=== PATIENT | male | born 1990 | race Caucasian/White ===

== ENCOUNTER 2025-10-09 16:19 | Emergency (ER) | payer MEDICAID, SELFPAY ==
--- OUTSIDE RECORDS SUMMARY | 2024-05-02 08:00 | XMS_ITS ---
Author Organization [facility] Address [address] [place] [id number] Care Team Providers Care Car Audio Installer Name Role Phone DEBBI HALE Primary Care Provider Unavailab Edilson Mac Unavailable [phone] REASON FOR VISIT pt already seen earlier appt Social History Sex Assigned At : Social History Observation Description Sex Assigned At Male Encounters Encounter Location Date Provider Diagnosis - Endocrinology [address] [place] [address] 05/02/2024 Edilson Freitas Plan Of Treatment No Information Progress Notes * MIKAELA MCADAMSEDOB:1990 (35 yo M)Acc No.[id number]:05/02/2024 UNLOCKED PROGRESS NOTE Progress Note Patient: TOSHIA CALLAHAN Provider: Anastasiya Freitas MD :1990 A ge:34 Y S ex:Male Date:05/02/2024 Address:[address] [place] [id number] Pcp:DEBBI HALE Subjective: * Chief Complaints: * 1 . Pt already seen earlier appt. * Medical History: * Implants: Objective: * Vitals: Assessment: Plan: * Treatment: * Billing Information: * Visit Code: * Procedure Codes: * Electronic signature of Mariia Freitas MD on 10/09/2025 at 08:21 PM EST Sign off status: Pending * Provider: Anastasiya Freitas MD Date: 0 05/02/2024 Generated for Lacey gutierrez/Olayinka/Sandee on: 1 12/10/2024 08:21 PM EST
--- OUTSIDE RECORDS SUMMARY | 2024-05-04 08:40 | XMS_ITS ---
Author Organization [facility] Address [address] [place] [phone] Care Team Providers Care Payable Representative Name Role Phone BHARATH HALEANDRAELIBERTAD Primary Care Provider Unavailab Edilson Mac Unavailable [phone] Allergies No Known Allergies REASON FOR VISIT dm 4 weeks@ see action Social History Sex Assigned At : Social History Observation Description Sex Assigned At Male Section Notes: Former Cigaette Smoker - quit 1.5 yr, smoked 1/2-3/4 ppd for over 10 yr before quitting Currently Smokes Marijuana Encounters Encounter Location Date Provider Diagnosis - Endocrinology [address] [place] [address] 05/04/2024 Edilson Freitas Uncontrolled type 1 diabetes mellitus with hyperglycemia E10.65 Assessments Encounter Date Diagnosis (ICD Code) Assessment Notes Treatment Notes Treatment Clinical Notes Section Notes 05/04/2024 Uncontrolled type 1 diabetes mellitus with hyperglycemia (ICD-10 - E10.65) Plan Of Treatment Pending Test Test Name Order Date Random Glucose Test 05/04/2024 Progress Notes * MIKAELA MCADAMSEDOB:1990 (35 yo M)Acc No.[id number]:05/04/2024 UNLOCKED PROGRESS NOTE Progress Note Patient: TOSHIA CALLAHAN Provider: Anastasiya Freitas MD :1990 A ge:34 Y S ex:Male Date:05/04/2024 Address:[address] [place] [address] [place], [id number] Pcp:DEBBI HALE Subjective: * Chief Complaints: * 1 . Dm 4 weeks@ see action. * Medical History: H ypertension, Diabetes, Anxiety, Testicular Pain. * Hospitalization/Major Diagno stic Procedure: [facility] ER- Chest pain 10/2020. * Family History: F ather: alive, diagnosed with Hypertension, Heart Disease. M other: alive, Good health.?Maternal Grand Father: , diagnosed with Heart Disease. M aternal Grand Mother: alive, diagnosed with Diabetes, Hypertension, Heart Disease. S iblings: alive, 1 brother - cancer ? twice - testicular with recurrence, diagnosed with Cancer. 2 brother(s) . 2 son(s) , 1 daughter(s) - healthy. . * Social History: F ormer Cigaette Smoker - quit 1.5 yr, smoked 1/2-3/4 ppd for over 10 yr before quitting Currently Smokes Marijuana. * Allergies: N .K.D.A. * Implants: Objective: * Vitals: Assessment: * Assessment: 1. U ncontrolled type 1 diabetes mellitus with hyperglycemia - E10.65 Plan: * Treatment: * Procedure Codes: 8 2962 Gluc Bld Gluc Mntr Dev Cleared Fda Spec Home Use * Billing Information: * Visit Code: * Procedure Codes: 58557 Gluc Bld Gluc Mntr Dev Cleared Fda Spec Home Use. * Electronic signature of Mariia Freitas MD on 10/09/2025 at 08:22 PM EST Sign off status: Pending * Provider: Anastasiya Freitas MD Date: 0 05/04/2024 Generated for Lacey gutierrez/Olayinka/eTransmitting on: 12/10/2024 08:22 PM EST
--- OUTSIDE RECORDS SUMMARY | 2025-10-03 14:15 | XMS_ITS | Continuity of Care Document ---
Author Organization [facility] Address [address] [place] [address] Phone Care Team Providers Care Head Correction Officer Name Role Phone Elisha Glynn MS Unavailable Unavailable Procedures Procedure Date Group Therapy Advance Directives Directive Yes / No Effective Date File Name No Information Encounters Encounter Description Practice Location Reason(s) For Visit Diagnoses Date Provider Group Therapy [facility], [address] [place] [address], [address] [place] [address] tel:[phone] [facility] [address] No Information 2024 Gretta Tello. [address] [place] [address], [address] [place] [address], . tel:[phone] [facility], [address] [place] [address], [address] [place] [address] tel:[phone] [facility] [address] No Information 2024 Gretta Tello. [address] [place] [address], [address] [place] [address], . tel:[phone] [facility], [address] [place] [address], [facility], tel:[phone] [facility] [address] No Information 2024 Gretta Tello. [address] [place] [address], [address] [place] [address], . tel:[phone] [facility], [address] [place] [address], [address] [place] [address] tel:[phone] [facility] [address] No Information 2024 Gretta Tello. [address] [place] [address], [address] [place] [address], . tel:[phone] [facility], [address] [place] [address], [address] [place] [address] tel:[phone] [facility] [address] No Information 2024 Gretta Tello. [address] [place] [address], [address] [place] [address], . tel:[phone] [facility], [address] [place] [address], [address] [place] [address] tel:[phone] [facility] [address] No Information 2024 Gretta Tello. [address] [place] [address], [address] [place] [address], . tel:[phone] [facility] [employer] [facility], [address] [place] [address], [address] [place] [address] tel:[phone] [facility] [address] No Information 2024 Gretta Tello. [address] [place] [address], [address] [place] [address], . tel:[phone] [employer] [facility], [address] [place] [address], [address] [place] [address] tel:[phone] [facility] [address] No Information 2024 Gretta Tello. [address] [place] [address], [address] [place] [address], . tel:[phone] [facility] [employer] [facility], [address] [place] [address], [address] [place] [address] tel:[phone] [facility] [address] No Information 2024 Gretta Tello. [address] [place] [address], [address] [place] [address], . tel:[phone] Family History Family Member Type Diagnosis Age At Onset No Information Payers Payer name Insurance type Covered democrat ID Authoriza tion(s) No Information Social History Type Description Quantity Date Captured Comments Sex Male Smoking Status No Information Sexual Orientation Unknown Gender Identity Male Chief Complaint And Reason For Visit No Information History Of Present Illness Encounter Date Complaint History Of Prese nt Illness No Information Instructions Date Instruction Additional Infor mation No Information Assessments Type Assessment Date No Information
[2025-10-09 16:38] VITALS: BP 134/81; BP 151/85; PULSE 70; PULSE 84; RESP 18; TEMP 36.6; O2SAT 100; BMI 23.3
[2025-10-09 16:41] VITALS: BP 151/85; PULSE 70; RESP 18; TEMP 36.6; O2SAT 100
--- NOTE | 2025-10-09 17:29 | ED_ITS ---
HPI - Nausea/Vomiting/Diarrhea General Chief complaint: Nausea/Vomiting/Diarrhea Stated complaint: N/V Time Seen by Provider: 10/09/25 16:45 Source: patient Mode of arrival: ambulatory Limitations: no limitations History of Present Illness ED Provider: Dr. Elmira Iniguez HPI Narrative: Patient comes to the emergency room complaining of nausea vomiting. Patient states that yesterday he drank a large amount of wine. All day today he has has been vomiting, up to 10 times. Patient states that he saw blood in the vomit. Patient denies any black stool or fresh blood per rectum. Patient states that he does not have significant abdominal pain. However, patient states that any time that he tries to drink something, he vomits it. Patient denies any diarrhea. Denies fever chills, denies any URI or UTI seem Related Data Previous Rx's ?Medication ?Instructions ?Recorded omeprazole 20 mg capsule,delayed 20 mg PO DAILY #30 ca ps 10/09/25 release ondansetron 4 mg disintegrating 4 mg PO Q6H PRN nausea and 10/09/25 tablet vomiting #14 tabs ondansetron 4 mg disintegrating 4 mg PO Q6H PRN nausea and 10/09/25 tablet vomiting #20 tabs Allergies Allergy/AdvReac Type Severity Reaction Status Date / Time No Known Allergies Allergy Verified 10/09/25 16:40 Review of Systems 2 Review of Systems: Constitutional : No Weight loss, No Fever, No Chills, No Night Sweats, No Fatigue, No Malaise ENT/Mouth : No Hearing loss, No Ear Pain, No Nasal Congestion, No Sinus Pain, No Hoarseness, No sore throat, No Rhinorrhea, No Swallowing Difficulty Eyes: No Eye Pain, No Swelling, No Redness, No Foreign Body, No Discharge, No Vision Changes Cardiovascular : No Chest Pain, No SOB, No Dyspnea on Exertion, No Orthopnea, No Edema, No Palpitations Respiratory : No Cough, No Sputum, No Wheezing, No Smoke Exposure, No Dyspnea Gastrointestinal : complaining of nausea and bloody vomit, No Diarrhea, No Constipation, No abdominal Pain, No Hematochezia, No Melena Genitourinary : no irregular bleeding, No Dysuria, No Urinary Frequency, No Hematuria, No Urinary Incontinence, No Urgency, No Flank Pain, No Urinary Flow Changes, No Hesitancy Musculoskeletal : No joint pain, No Myalgias, No Joint Swelling Skin : No Skin Lesions, No rash Neuro : No Weakness, No Numbness, No Paresthesias, No Loss of Consciousness, No Dizziness, No Headache Psych : No Anxiety/Panic, No Depression, No SI/HI/AH/VH, No Social Issues, Heme/Lymph: No Bruising, No Bleeding,No Lymphadenopathy Endocrine : No Polyuria, No Polydipsia, No Temperature Intolerance [facility] Past Medical History Medical History (Updated 10/09/25 @ 21:25 by Elmira Iniguez MD) Type 1 diabetes Social History Social History Advance Directives: No Advance Directives Information Provided: No Do you have a plan to hurt others: No Plan Physical Exam 2 Exam: Exam: Appearance: Alert. Oriented X3. No acute distress. Eyes: Pupils equal, round and reactive to light. ENT: Pharynx normal. Neck: Normal inspection. Neck supple. No lymph nodes noted. No crepitus CVS: Normal heart rate and rhythm. Pulses normal. Normal S1 and S2 Respiratory: No respiratory distress. Breath sounds normal. No Wheezing. No rales Abdomen: Soft and nontender. No rigidity. No distention. Skin: Skin warm and dry. Normal skin color. Normal skin turgor. Extremities: No lower extremity edema. No Lacerations. No Rash Neuro: Oriented X 3. No motor deficit. No sensory deficit. Moving all extremities. No slurred speech. CN 2 through 12 grossly intact Psych: calm, cooperative, normal affect Vital Signs: Vital Signs: Last Vital Signs Temp 97.9 F 10/09/25 16:41 Pulse 80 10/09/25 18:00 Resp 20 10/09/25 18:00 BP 142/80 H 10/09/25 18:00 Pulse Ox 99 10/09/25 18:00 O2 Del Method Room Air 10/09/25 18:00 BMI result Body Mass Index 23.3 Course Course Course Narrative: patient reports being type 1 diabetic. Reports that he is compliant with medications. , complaining of nausea and vomiting, no abdominal pain no diarrhea, reports seeing blood in the vomit. Patient receiving IV fluids, Zofran, labs pending. Medications Administered Discontinued Medications Generic Name Dose Route Start Last Admin Trade Name Freq PRN Reason Stop Dose Admin Al Hydroxide/Mg Hydroxide 30 ml 10/09/25 18:41 10/09/25 18:59 Magnesium Hydrox/Alum Hydrox 30 Ml Oral.Susp PO 10/09/25 18:42 30 ml ONCE ONE Administration Sodium Chloride 2,000 mls @ 999 mls/hr 10/09/25 16:54 10/09/25 21:18 Ns IVCONT 10/09/25 18:54 Infused .Q2H1M ONE Infusion Lidocaine HCl 15 ml 10/09/25 18:41 10/09/25 18:59 Lidocaine Hcl Viscous 2 % 15 Ml Solution MUCOUS MEM 10/09/25 18:42 15 ml ONCE ONE Administration Ondansetron HCl 4 mg 10/09/25 16:54 10/09/25 17:30 Ondansetron Hcl 4 Mg/2 Ml Vial IVPUSH 10/09/25 16:55 4 mg ONCE ONE Administration Pantoprazole Sodium 80 mg 10/09/25 16:54 10/09/25 17:32 Pantoprazole Sodium 40 Mg/10 Ml Vial IVPUSH 10/09/25 16:55 80 mg ONCE ONE Administration Medical Decision Making Medical Decision Making [facility] Narrative: My interpretation of labs: Patient's white blood cell count 12.1, likely reactive leukocytosis. No significant abnormality in patient's chemistry, glucose 292, normal LFTs Occult blood negative. Patient did not provide a vomit sample, patient has stopped vomiting ETOH negative Patient likely has alcoholic gastritis. No abdominal pain. I considered ordering a CT scan of the abdomen. However, patient did not have any abdominal pain on palpation. After Protonix, GI cocktail, patient feeling much better, no longer vomiting Differential Diagnosis Differential Diagnoses: The differential diagnosis associated with the presentation includes (Alcoholic gastritis, viral syndrome, alcohol intoxication, peptic ulcer disease) Lab Data [facility] Lab Attestation statement: I reviewed the patient's lab results. 10/09/25 17:36 10/09/25 17:36 Labs: Lab Results 10/09/25 10/09/25 Range/Units 17:33 17:36 WBC 12.1 H (4.8-10.8) X10*3/uL RBC 4.51 L (4.60-5.80) X10*6/uL Hgb 13.3 L (14.0-18.0) g/dl Hct 38.6 L (42.0-52.0) % MCV 85.6 (80.0-98.0) fL MCH 29.5 (27.0-33.0) pg MCHC 34.5 (31.0-36.0) g/dl RDW 13.1 (11.0-16.0) % Plt Count 297 (160-400) X10*3/uL MPV 11.4 (9.4-12.4) fL Immature Gran % (Auto) 0.4 (0.0-0.4) % Neut % (Auto) 88.0 H (45-73) % Lymph % (Auto) 7.1 L (20-40) % [place] % (Auto) 4.1 (2-11) % Eos % (Auto) 0.0 (0-4) % Baso % (Auto) 0.4 (0-2) % Lymph # (Auto) 0.9 L (1.2-4.9) X10*3/uL [place] # (Auto) 0.5 (0.1-1.2) X10*3/uL Eos # (Auto) 0.0 (0.0-0.4) X10*3/uL Baso # (Auto) 0.1 (0.0-0.2) X10*3/uL Abs Immat Gran (auto) 0.05 H (0.00-0.03) X10*3/uL Absolute Neuts (auto) 10.6 H (2.0-8.3) x10*3/uL Absolute Nucleated RBC 0.000 (0.0-0.012) X10*3/uL Nucleated RBC % (auto) 0.0 (0.0-0.2) /100WBC Sodium 138 (135-145) mmol/L Potassium 4.7 (3.3-5.1) mmol/L Chloride 99 (96-108) mmol/L Carbon Dioxide 30 H (22-29) mmol/L Anion Gap 14 (12-20) BUN 21 H (9-16) mg/dL Creatinine 1.14 (0.5-1.4) mg/dL Estim Creat Clear Calc 80.1 Estimated GFR > 60 POC Glucose 257 H (60-115) mg/dL Random Glucose 292 H (60-115) mg/dL Calcium 9.3 (8.4-10.2) mg/dL Magnesium 1.7 (1.6-2.6) mg/dL Total Bilirubin 0.7 (0.0-1.0) mg/dL Direct Bilirubin 0.3 (0.0-0.5) mg/dL AST 21 (5-37) U/L ALT 20 (0-40) U/L Alkaline Phosphatase 79 (39-117) U/L Total Protein 7.1 (6.5-8.0) g/dL Albumin 4.1 (3.5-5.0) g/dL Lipase 22 (8-78) U/L Stool Occult Blood NEGATIVE (NEGATIVE) Ethyl Alcohol < 10 mg/dL Discharge Plan Discharge Clinical Impression: Acute alcoholic gastritis Patient Disposition: Home, Self-Care Instructions: Gastritis (ED), Diet for Stomach Ulcers and Gastritis (ED) Prescriptions: New omeprazole 20 mg capsule,delayed release(DR/EC) 20 mg PO DAILY Qty: 30 0RF ondansetron 4 mg tablet,disintegrating 4 mg PO Q6H PRN (Reason: nausea and vomiting) Qty: 20 0RF ondansetron 4 mg tablet,disintegrating 4 mg PO Q6H PRN (Reason: nausea and vomiting) Qty: 14 0RF Print Language: Croatian
[2025-10-09 17:46] LABS: MANUAL DIFF FLAG NO
[2025-10-09 17:59] LABS: Hematocrit 38.6 % (42.0-52.0); Hemoglobin 13.3 g/dl (14.0-18.0); Imm Gran Abs Auto 0.05 X10*3/uL (0.00-0.03); Imm Gran Pct Auto 0.4 % (0.0-0.4); Lymphocytes Absolute Auto 0.9 X10*3/uL (1.2-4.9); Mean Corpuscular HGB Conc 34.5 g/dl (31.0-36.0); Mean Corpuscular Hemoglobin 29.5 pg (27.0-33.0); Mean Corpuscular Volume 85.6 fL (80.0-98.0); NRBC Abs Auto 0.000 X10*3/uL (0.0-0.012); NRBC Pct Auto 0.0 /100WBC (0.0-0.2); Platelet Count 297 X10*3/uL (160-400); Red Blood Count 4.51 X10*6/uL (4.60-5.80); White Blood Count 12.1 X10*3/uL (4.8-10.8)
[2025-10-09 18:00] VITALS: BP 142/80; PULSE 80; RESP 20; O2SAT 99
[2025-10-09 18:06] LABS: Alanine Aminotransferase 20 U/L (0-40); Albumin Level 4.1 g/dL (3.5-5.0); Alkaline Phosphatase 79 U/L (39-117); Anion Gap 14 (12-20); Aspartate Amino Transferase 21 U/L (5-37); Blood Urea Nitrogen 21 mg/dL (9-16); Calcium 9.3 mg/dL (8.4-10.2); Carbon Dioxide 30 mmol/L (22-29); Chloride 99 mmol/L (96-108); Creatinine Clr Calc Pharmacy 80.1; Estimated Glomerular Filt Rate > 60; Lipase 22 U/L (8-78); Magnesium 1.7 mg/dL (1.6-2.6); Potassium 4.7 mmol/L (3.3-5.1); Sodium 138 mmol/L (135-145); Total Protein 7.1 g/dL (6.5-8.0)
[2025-10-09 18:33] LABS: OBS Int Ctl Valid YES; OBS1 NEGATIVE (NEGATIVE)
[2025-10-09] MEDS: Lidocaine HCl Viscous 2 % 15 ML SOLUTION MUCOUS MEM (18:59)
[2025-10-09] MEDS: Magnesium Hydrox/Alum Hydrox 30 ML ORAL.SUSP PO (18:59)
[2025-10-09 19:08] LABS: Glucose, Whole Blood 257 mg/dL (60-115)
--- OUTSIDE RECORDS SUMMARY | 2025-10-09 20:22 | XMS_ITS | Encounter Summary ---
Author Organization [facility] Address [address] [place] [address] Care Team Providers Care Operating Room Rn Name Role Phone Jacqueline Paula PA-C Unavailable Dominick Barroso DO Primary Care Provider Encounter Details Date Type Department Care Team (Late st Contact Info) Description 01/14/2024 Scanned Document [facility] Endocrinology [address] [address] Crystal Culver PA [address] [place] [address] Social History Tobacco Use Types Packs/Day Years Used Date Smoking Tobacco: Heavy Smoker Cigarettes 0.5 9 Smokeless Tobacco: Current Alcohol Use Standard Drinks/Week Comments No 0 (1 standard drink = 0.6 oz pur e alcohol) Sex and Gender Information Value Date Recorded Sex Assigned at Not on file Legal Sex Male 4:30 PM EDT Gender Identity Not on file Sexual Orientation Not on file documented as of this encounter Plan of Treatment Not on file documented as of this encounter Visit Diagnoses Not on filedocumented in this encounter Care Teams Operating Room Rn Relationship Specialty Start Date End Date Dominick Barroso DO [address] [place] [address] PCP - General Internal Medicine 10/20/16 Jacqueline Paula PA-C 05/19/16 documented as of this encounter
--- OUTSIDE RECORDS SUMMARY | 2025-10-09 20:22 | XMS_ITS | Encounter Summary ---
Author Organization [facility] Address [address] [place] [address] Care Team Providers Care Mailroom Messenger Name Role Phone Jacqueline Paula PA-C Unavailable [phone] Dominick Barroso DO Primary Care Provider Encounter Details Date Type Department Care Team (Late st Contact Info) Description 12/27/2023 Scanned Document [facility] Endocrinology [address] [address] Crystal Culver PA [address] [place] [address] Social History Tobacco Use Types Packs/Day Years [...] on filedocumented in this encounter Care Teams Mailroom Messenger Relationship Specialty Start Date End Date Dominick Barroso DO [address] [place] [address] PCP - General Internal Medicine 10/20/16 Jacqueline Paula PA-C 05/19/16 documented as of this encounter
--- OUTSIDE RECORDS SUMMARY | 2025-10-09 20:22 | XMS_ITS | Patient Health Record ---
Author Organization [facility] Address [address] [place] [address] Care Team Providers Care Monogram Maker Name Role Phone Carrie Starks Primary Care Provider [phone] Isa Carlisle Unavailable [phone] Allergies No Known Allergies Results Component Value Reference Range Notes GMI Outside [address] Reviewed date:09/06/2025 08:07:52 AM Interpretation:10.1% Performing Lab: Notes/Report: 10.1% Reason For Referral No Information Medications Medication SIG (Take, Route, Frequency, Duration) Notes Start Date End Date Status Tresiba FlexTouch 100 UNIT/ML Solution Pen-injector ADMINISTER 35 UNITS UNDER THE SKIN EVERY NIGHT; Duration: 81 Active FreeStyle Cielo 3 Teachey use to test blood sugar; Duration: 365 days E10 Patient should make appt w/ [facility] Hog Scalder 04/28/2024 Active BD Pen Needle Short U/F 31G X 8 MM Miscellaneous as directed, four times a day with insulin; Duration: 75 days Active Insulin Lispro (1 Unit Dial) 100 UNIT/ML Solution Pen-injector INJECT 5 TO 10 UNITS UNDER THE SKIN BEFORE LUNCH PLUS SLIDING SCALE FOR THREE TIMES DAILY; Duration: 30 Active FreeStyle Cielo 3 Sensor - Miscellaneous apply sensor every 14 days; Duration: 84 days E10.69 04/28/2024 Active FreeStyle Lite - Device as directed Not-Taking FreeStyle Lancets - Miscellaneous as directed Not-Taking Amitriptyline HCl 50 MG Tablet orally Not-Taking hydrOXYzine Pamoate 25 MG Capsule 1 cap(s) orally 2 times a day as needed for anxiety; Duration: 30 days 11/07/2020 Not-Taking Blood Pressure Cuff I10 QD; Duration: 365 DAYS *Change/Edit strength and directions* 10/27/2020 Unknown Metoprolol Tartrate 25 MG Tablet 1 tablet with food Orally once a day; Duration: 90 days Unknown Losartan Potassium 100 MG Tablet 1 tablet Orally Once a day; Duration: 90 days Unknown Immunizations Vaccine Route Administration Date Status Comme nts Influenza (Declined) Unknown 01/08/2021 Refused Tdap (Declined) Unknown 05/17/2012 Administered xxxInfluenza (VFC 3 and above with preservative) IM Intramuscular 08/30/2007 Administered no egg allergy xxxInfluenza (VFC 3 and above with preservative) IM Intramuscular 10/16/2008 Administered NO EGG ALLERGIE S WAITED 10 MIN xxxInfluenza (VFC 3 and above with preservative) IM Intramuscular 08/05/2009 Administered Z Influenza H1N1 with preservative 4 and older state imm program Unknown 08/25/2009 Administered Social History Tobacco Use: Social History Observation Description Date Details (start date - stop date) Current Smoker NA - NA Sex Assigned At : Social History Observation Description Sex Assigned At Male Social History Social History Social Info Question Answer Notes Sexual History Had sex in the past 12 months Yes Use protection? No Have you ever had an STD? Yes Chlamydia Yes LMP: MALE Smoking Are you a: current smoker How often do you smoke? every day How many cigarettes a day? 5 or less Are you interested in quitting Ready to quit Additional Details Category Social Info Options Details Social History Occupation : student Marital Status : single Smokers in household : no Drug Use h/o marijuana Language Nepali, Slovak Problems Problem Type SNOMED Code ICD Code Onset Dates Problem Status W/U Status Risk Notes Problem Type 1 diabetes mellitus with other specified complication (E10.69) Active confirmed - advised to increase insulin to14 12/13/24 - no changes advised to f/u with endo Problem Anxiety (01848250) Anxiety (F41.9) Active confirmed Problem Essential hypertension (95518754) Essential hypertension (I10) Active confirmed Problem Pain in testicle (43581227) Testicular pain (N50.819) Active confirmed Problem Alcohol dependence (30845332) Alcohol dependence, daily use (F10.20) Active confirmed Problem Severe major depression, single episode, without psychotic features (69785182) Current severe episode of major depressive disorder without psychotic features without prior episode (F32.2) Active confirmed Encounters Encounter Location Date Provider Diagnosis [address] [place] [address] 12/06/2024 Isa Carlisle [address] [place] [address] 01/18/2025 Isa Carlisle [address] [place] [address] 04/02/2025 Isa Carlisle Type 1 diabetes mellitus with other specified complication E10.[address] [place] [address] 04/18/2025 Isa Carlisle [address] [place] [address] 07/24/2025 Isa Carlisle [address] [place] [address] 12/13/2024 Isa Carlisle Type 1 diabetes mellitus with other specified complication E10.69 Assessments Encounter Date Diagnosis (ICD Code) Assessment Notes Treatment Notes Treatment Clinical Notes Section Notes 12/13/2024 Type 1 diabetes mellitus with other specified complication (ICD-10 - E10.69) - advised to increase insulin to14 12/13/24 - no changes advised to f/u with endo Patient report he is enrolled in the type 1 diabetes studies. Report he has been doing well with his blood sugars report occasionally he has a low blood sugar however he know how to correct it report does not happen frequently [place] out [place] the [place] advised to book an appointment with organizational psychologist patient verbalized understanding Coding: Use UPDATED E&M code. Also applies when carrying over a previous visit. 04/02/2025 Type 1 diabetes mellitus with other specified complication (ICD-10 - E10.69) - advised to increase insulin to14 12/13/24 - no changes advised to f/u with endo Plan Of Treatment Pending Test Test Name Order Date Comp Metabolic Panel w/eGFR 36349 2012 Comp Metabolic Panel w/eGFR 86926 2023 CBC (Includes Diff/Plt) 6399 11/02/2023 Hemoglobin A1c 496 01/10/2013 Hemoglobin A1c 496 02/15/2024 Hemoglobin A1c 496 11/02/2023 Microalbumin,[place] [facility] (w/creat) 6517 070 11/2023 Microalbumin,[place] [facility] (w/creat) 6517 12/23 Lipid Panel, Standard 7600 01/10/2013 Lipid Panel, Standard 7600 07/23/2020 Lipid Panel, Standard 7600 11/02/2023 Capillary Blood Glucose 04/21/2018 Hemoglobin A1c 04/21/2018 Hemoglobin A1c 04/24/2019 Hepatitis Panel, Chronic X7453 2 Retinal Screening: OUTSIDE 01/10/2013 CBC (H/H, RBC, INDICES, WBC, PLT) 2012 MICROALBUMIN/CREATININE RATIO, TIMED URI NE 07/23/2020 Insurance Providers Payer Name Payer Address Payer Phone Subscriber Number Group Number Insured Name Patient Relationship to Insured Coverage Start Date Coverage End Date Medicaid Riley [place] [address] [phone] [id number] Ashwin Gabriel Self - patient is the insured Medicaid [place] [address] [phone] [id number] Ashwin Gabriel Self - patient is the insured [facility] Attn [place] [address] [id number] Ashwin Gabriel Self - patient is the insured Medical (General) History Medical History History ICD Code insulin dependent diabetic since age 11 grew up in foster care Hospitalization History Reason Date(Month/Year) multiple hospitalizations related to sug ar control new onset diabetes
--- OUTSIDE RECORDS SUMMARY | 2025-10-09 20:22 | XMS_ITS | Clinical Summary ---
Author Organization [facility] Address [address] [place] [address] Care Team Providers Care Perl Programmer Name Role Phone Merissa Steward Primary Care Provider Unavailabl e Medications Insulin Glargine (Semglee) 100 UNIT/ML injection 15 0 12/04/2012 Active Insulin Pen Needle (B-D ULTRAFINE III SHORT PEN) 31G X 8 MM Misc 100 0 12/04/2012 Active Insulin Lispro, 1 Unit Dial, (HumaLOG KwikPen) 100 UNIT/ML Solution Pen-injector 15 0 12/04/2012 Active Mometasone Furoate (Nasonex) 50 MCG/ACT nasal spray USE 2 SPRAYS IN EACH NOSTRIL ONCE DAILY 1 3 01/20/2013 Active Active Problems Problem Noted Date Diagnosed Date Closed fracture of nasal bones 01/20/2013 Acquired deviated nasal septum 01/20/2013 Hypertrophy of nasal turbinates 01/20/2013 Nasal congestion 01/20/2013 Family History Medical History Relation Name Comments Cancer (?Type) Other Cancer : Fami ly History Diabetes Other Diabetes Mellit us : Family History Relation Name Status Comments Other Social History Tobacco Use Types Packs/Day Years Used Date Smoking Tobacco: Never Assessed Comments:Smoking Status:Curr ent every day smoker Sex and Gender Information Value Date Recorded Sex Assigned at Not on file Legal Sex Male 6:52 PM EDT Gender Identity Not on file Sexual Orientation Not on file Last Filed Vital Signs Vital Sign Reading Time Taken Comments Blood Pressure 123/76 01/20/2013 11:01 AM EDT Pulse 90 01/20/2013 11:01 AM EDT Temperature - - Respiratory Rate - - Oxygen Saturation - - Inhaled Oxygen Concentration - - Weight 68 kg (150 lb) 01/20/2013 11:01 AM EDT Height 167.6 cm (5' 6 ) 01/20/2013 11:01 AM EDT Body Mass Index 24.21 01/20/2013 11:01 AM EDT Plan of Treatment Health Maintenance Due Date Last Done Comments Hepatitis C Screening 1992 DTaP/Tdap/Td (1 - Tdap) 02/12/2010 Hep B (1 of 3 - 19+ 3-dose series) 02/12/2011 COVID-19 Vaccine (2024-2 6 season) 2025 Influenza (#1) 2025 Zoster (Shingrix) (1 of 2) 02/12/2042 HPV Vaccine (No Doses Required) Completed Hep A Aged Out No longer eligi ble based on patient's age to complete this topic Hib Aged Out No longer eligi ble based on patient's age to complete this topic Meningococcal ACWY Aged Out No longer eligible based on patient's age to complete this topic Pneumococcal Aged Out No longer eligi ble based on patient's age to complete this topic Care Teams Perl Programmer Relationship Specialty Start Date End Date Merissa Steward PCP - General 05/31/23
--- OUTSIDE RECORDS SUMMARY | 2025-10-09 20:22 | XMS_ITS | Encounter Summary ---
Author Organization [facility] Address [address] [place] [address] Care Team Providers Care Licensed Optician Name Role Phone Jacqueline Paula PA-C Unavailable [phone] Dominick Barroso DO Primary Care Provider [phone] Encounter Details Date Type Department Care Team (Late st Contact Info) Description 02/24/2021 Scanned Document [facility] Endocrinology [address] [address] Crystal Culver PA [address] [place] [address] Social History Tobacco Use Types Packs/Day Years [...] on file Sexual Orientation Not on file COVID-19 Exposure Response Date Recorded In the last month, have you been in contact with someone who was confirmed or suspected to have Coronavirus / COVID-19? No / Unsure 02/27/2021 1:17 PM EDT documented as of this encounter Plan of Treatment Not on file documented as of this encounter Visit Diagnoses Not on filedocumented in this encounter Care Teams Licensed Optician Relationship Specialty Start Date End Date Dominick Barroso DO [address] [facility] [place] [address] PCP - General Internal Medicine 10/20/16 Jacqueline Paula PA-C 05/19/16 documented as of this encounter
--- OUTSIDE RECORDS SUMMARY | 2025-10-09 20:22 | XMS_ITS | Clinical Summary ---
Author Organization [facility] Prior to 03/24/25 Address [address] [place] [address] Care Team Providers Care Family Services Assistant Name Role Phone Pcp, [facility] Primary Care Provider [phone] Allergies No known active allergies Medications Medication Sig Dispensed Refills Start Date End Date Status Insulin Lispro, Human, 100 UNIT/ML SOCT Inject under the skin. 0 Active hydrOXYzine (ATARAX) 25 MG tablet Take 1 tablet (25 mg total) by mouth 3 (three) times a day as needed for itching. 30 tablet 1 12/02/2015 Active triamcinolone (KENALOG) 0.1 % cream Apply topically 2 (two) times a day. 60 g 1 02/18/2016 Active cyclobenzaprine (FLEXERIL) 10 MG tablet Take 1 tablet (10 mg total) by mouth 3 (three) times a day as needed for muscle spasms. 30 tablet 0 07/05/2020 Active Social History Tobacco Use Types Packs/Day Years Used Date Smoking Tobacco: Every Day Cigarettes 0.5 Alcohol Use Standard Drinks/Week Comments No 0 (1 standard drink = 0.6 oz pur e alcohol) Sex and Gender Information Value Date Recorded Sex Assigned at Male 10/09/2019 11:34 PM EST Gender Identity Not on file Sexual Orientation Not on file Last Filed Vital Signs Vital Sign Reading Time Taken Comments Blood Pressure 136/86 07/04/2020 10:46 PM EDT Pulse 92 07/04/2020 10:46 PM EDT Temperature 36.6 C (97.9 F) 07/04/2020 10:46 PM EDT Respiratory Rate 18 07/04/2020 10:46 PM EDT Oxygen Saturation 100% 07/04/2020 10:46 PM EDT Inhaled Oxygen Concentration - - Weight 62.6 kg (138 lb) 10/09/2019 11:33 PM EST Height - - Body Mass Index - - Plan of Treatment Health Maintenance Due Date Last Done Comments Hepatitis B Vaccines (1 of 3 - 3-dose series) 1992 Hepatitis C Screening 1992 COVID-19 Vaccine (#1) 1992 Pneumococcal Vaccine (1 of 2 - PCV) 02/12/1998 Depression Screening 2004 Preventative Health Evaluation 02/12/2010 Tobacco Cessation Counseling 02/12/2010 DTap / Tdap / Td (1 - Tdap) 02/12/2011 Influenza Vaccine (#1) 2025 RSV Ped < 20 months Aged Out No longe r eligible based on patient's age to complete this topic Care Teams Family Services Assistant Relationship Specialty Start Date End Date Pcp, MD Jaime [address] [place] [address] PCP - General Inflatable Buildings Laminator 11/27/15
--- OUTSIDE RECORDS SUMMARY | 2025-10-09 20:22 | XMS_ITS | Patient Health Record ---
Author Organization [facility] Al[facility] benson Billing Info Address [address] [place] [address] Phone [phone] Support Name Relationship Address Phone Ashwin Gabriel Self - patient is the insured [address] [place] [address] [phone] Reason For Referral No Information Social History Sex Observation Social History Observation Description Sex Observation Male Social History Social History Social Info Question Answer Notes Tobacco Status: Patient is a never smoker Problems Problem Type SNOMED Code ICD Code Dates Problem Status W/U Status Risk Notes Problem Type I diabetes mellitus without complication (640189822) Diabetes mellitus without mention of complication, type I [juvenile type], not stated as uncontrolled (250.01) Added On:06/10 Active confirmed [id number] 5 Plan Of Treatment No Information
--- OUTSIDE RECORDS SUMMARY | 2025-10-09 20:22 | XMS_ITS | Encounter Summary ---
Author Organization [facility] Address [address] [place] [address] Care Team Providers Care Vendor Management Consultant Name Role Phone Jacqueline Paula PA-C Unavailable [phone] Dominick Barroso DO Primary Care Provider + [phone] Encounter Details Date Type Department Care Team (Late st Contact Info) Description 12/31/2021 Scanned Document [facility] Endocrinology [address] [address] Crystal Culver PA [address] [place] [address] Social History Tobacco Use Types Packs/Day Years [...] have Coronavirus / COVID-19? No / Unsure 01/01/2022 8:01 AM EST documented as of this encounter Plan of Treatment Not on file documented as of this encounter Visit Diagnoses Not on filedocumented in this encounter Care Teams Vendor Management Consultant Relationship Specialty Start Date End Date Dominick Barroso DO [address] [place] [address] PCP - General Internal Medicine 10/20/16 Jacqueline Paula PA-C 05/19/16 documented as of this encounter
--- OUTSIDE RECORDS SUMMARY | 2025-10-09 20:22 | XMS_ITS | Encounter Summary ---
Author Organization [facility] Address [address] [place] [address] Care Team Providers Care Sanitation Manager Name Role Phone Jacqueline Paula PA-C Unavailable [phone] Dominick Barroso DO Primary Care Provider + [phone] Encounter Details Date Type Department Care Team (Late st Contact Info) Description 02/18/2021 Scanned Document [facility] Endocrinology [address] [address] Crystal Culver PA [address] [place] [address] Social History Tobacco Use Types Packs/Day Years [...] have Coronavirus / COVID-19? No / Unsure 02/18/2021 3:14 PM EDT documented as of this encounter Plan of Treatment Not on file documented as of this encounter Visit Diagnoses Not on filedocumented in this encounter Care Teams Sanitation Manager Relationship Specialty Start Date End Date Dominick Barroso DO [address] [facility] [place] [address] PCP - General Internal Medicine 10/20/16 Jacqueline Paula PA-C 05/19/16 documented as of this encounter
--- OUTSIDE RECORDS SUMMARY | 2025-10-09 20:22 | XMS_ITS | Clinical Summary ---
Author Organization [facility] Address [address] [place] [address] Care Team Providers Care Retirement Administrator Name Role Phone Jacqueline Paula PA-C Unavailable [phone] Dominick Barroso DO Primary Care Provider [phone] Allergies No known active allergies Medications glucose blood test strip One Touch Ultra Test Strips, See Instructions, Instructions: Testing 4 times a day, dx code 250.03, insuln dependent. patient needs appt for more refills, # 150 EA, 0 Refill(s), Type: Maintenance, Pharmacy: [id number] Special Instructions: Testing 4 times a day, dx code 250.03, insuln dependent. patient needs appt for more refills 06/22/20 11 Active B-D ULTRAFINE III SHORT PEN 31G X 8 MM Misc 4 (four) times a day. 03/03/20 21 Active losartan (COZAAR) 100 MG tablet Take 100 mg by mouth. Active metoPROLOL SUCCINATE (TOPROL-XL) 25 MG 24 hr tablet 11/27/19 22 Active insulin lispro (HumaLOG) 100 units/mL injectionIndicat ions:Type 1 diabetes mellitus without complication Inject 0.6 mL (60 Units total) under the skin daily. See Instructions, Instructions: INJECT UP TO 60 UNITS SUBCUTANEOUSLY DAILY, # 45 mL, Pharmacy: [id number] Special Instructions: INJECT UP TO 60 UNITS SUBCUTANEOUSLY DAILY 54 mL 06/10/20 22 Active Continuous Blood Gluc Livestock Handler (Dexcom G6 Livestock Handler) DeviceIndication s:Type 1 diabetes mellitus without complication 1 Device by Does not apply route continuous. 1 each 1 07/03/20 22 Active Continuous Blood Gluc Sensor (Dexcom G6 Sensor) MiscIndications: Type 1 diabetes mellitus without complication Change every 10 days 9 each 3 07/03/20 22 Active Continuous Blood Gluc Transmit (Dexcom G6 Transmitter) MiscIndications: Type 1 diabetes mellitus without complication Change every 3 months 1 each 3 07/03/20 22 Active Tresiba FlexTouch 100 UNIT/ML prefilled pen injectionIndicat ions:Type 1 diabetes mellitus without complication ADMINISTER 30 UNITS UNDER THE SKIN DAILY 15 mL 1 07/05/20 23 Active Active Problems Problem Noted Date Diagnosed Date Type 1 diabetes mellitus without complication Resolved Problems Problem Noted Date Diagnosed Date Resolved Date Type 1 diabetes mellitus without complication 05/19/20 16 05/19/2016 Family History Medical History Relation Name Comments Testicular cancer Brother Hypertension Father Diabetes type II Maternal Grandmother Hypertension Mother Heart disease Paternal Grandfather Stroke Paternal Uncle Relation Name Status Comments Brother Father Alive Maternal Grandfather Alive Maternal Grandmother Alive Maternal Uncle Alive Mother Alive Paternal Grandfather Alive Paternal Grandmother Alive Paternal Uncle Social History Tobacco Use Types Packs/Day Years [...] Sign Reading Time Taken Comments Blood Pressure 110/80 07/02/2022 3:29 PM EDT Pulse 68 07/02/2022 3:29 PM EDT Temperature 36.4 C (97.6 F) 03/03/2021 2:45 PM EDT Respiratory Rate 16 10/28/2020 11:16 PM EST Oxygen Saturation 99% 10/28/2020 11:16 PM EST Inhaled Oxygen Concentration - - Weight 65.3 kg (144 lb) 07/02/2022 3:29 PM EDT Height 167.6 cm (5' 6 ) 01/01/2022 8:09 AM EST Body Mass Index 23.24 01/01/2022 8:09 AM EST Plan of Treatment Health Maintenance Due Date Last Done Comments Hepatitis C Virus Screening 1992 Foot Exam 02/12/2002 Ophthalmology Exam 02/12/2002 HIV Screening 02/12/2005 Microalbumin/Creatinine Rati o Urine 02/12/2010 DTaP/Tdap/Td Vaccines (1 - Tdap) 02/12/2011 Hepatitis B Vaccines (1 of 3 - 19+ 3-dose series) 02/12/2011 Pneumococcal Vaccine: Pediat chas (0-5 Years) and At-Risk Patients (6 to 49 Years) (1 of 2 - PCV) 02/12/2011 Creatinine with GFR 2022 2021, 10/28/2020, 05/09/2016 Lipid Panel 2022 2021 Hemoglobin A1C 12/30/2022 07/02/2022, 12/23, 2021, Additional history exists Influenza Vaccine 05/25/2025 COVID-19 Vaccine (1 - 2024-2 6 season) 2025 HPV Vaccines (No Doses Required) Completed Procedures Procedure Name Priority Date/Time Associated Diagnosis Comments POCT GLYCOSYLATED HEMOGLOBIN (HGB A1C) Routine 07/02/2022 3:56 PM EDT Type 1 diabetes mellitus without complication (HCC) LIPID PANEL REFLEX DIRECT LDL Routine 2021 11:26 AM EDT Type 1 diabetes mellitus without complication (HCC) COMPREHENSIVE METABOLIC PANEL Routine 2021 11:26 AM EDT Type 1 diabetes mellitus without complication (HCC) from Last 3 Months or Most Recently Relevant to Health Maintenance Results * (ABNORMAL) POCT Glycosylated Hemoglobin (Hb A1C) (07/02/2022 3:56 PM EDT) Hemoglobin A1C 8.9(A) 4.0 - 6.0 % Lot Number [employer] Pass Pass Blood specimen (specimen) 07/02/2022 3:56 PM EDT Crystal [facility] POINT OF CARE TEST ORDERABLES Final Result * (ABNORMAL) Lipid Panel Reflex Direct LDL (2021 11:26 AM EDT) Cholesterol, Total 196 <200 mg/dL [facility] Cholesterol, HDL 45 > OR = 40 mg/dL [facility] Triglycerides 122 <150 mg/dL [facility] LDL Cholesterol 128(H) mg/dL (calc) [facility] Comment: Reference range: <100 Desirable range <100 mg/dL for primary prevention; <70 mg/dL for patients with CHD or diabetic patients with > or = 2 CHD risk factors. LDL-C is now calculated using the Johnathon calculation, which is a validated novel method providing better accuracy than the Friedewald equation in the estimation of LDL-C. Brenden SS et al. EUN. 2013;310(19): 1344-1312 (http://education.Coinify/faq/AIT519) Cholesterol/HDL Ratio 4.4 <5.0 (calc) [facility] Non HDL Chol. (LDL+VLDL) 151(H) <130 mg/dL (calc) [facility] Comment: For patients with diabetes plus 1 major ASCVD risk factor, treating to a non-HDL-C goal of <100 mg/dL (LDL-C of <70 mg/dL) is considered a therapeutic option. Blood specimen (specimen) Blood specimen / Unknown 2021 11:26 AM EDT 2021 11:27 AM EDT Narrative [facility] - 02/20/2021 3:31 PM EDT FASTING:NO FASTING: NO us Crystal [facility] LAB BLOOD ORDERABLES Final Res ult [facility] [address], [place] [address] * (ABNORMAL) Comprehensive Metabolic Panel (2021 11:26 AM EDT) Glucose 146(H) 65 - 139 mg/dL [facility] Comment: Non-fasting reference interval Blood Urea Nitrogen (BUN) 10 7 - 25 mg/dL [facility] Creatinine 0.95 0.60 - 1.35 mg/dL [facility] eGFR Non- 108 > OR = 60 mL/min/1. 73m2 [facility] eGFR 125 > OR = 60 mL/min/1. 73m2 [facility] BUN/Creatinine Ratio NOT APPLICABLE (calc) [facility] Sodium 139 135 - 146 mmol/L [facility] Potassium 3.9 3.5 - 5.3 mmol/L [facility] Chloride 99 98 - 110 mmol/L [facility] CO2 32 20 - 32 mmol/L [facility] Calcium 9.4 8.6 - 10.3 mg/dL [facility] Protein, Total 7.8 6.1 - 8.1 g/dL [facility] Albumin 4.4 3.6 - 5.1 g/dL [facility] Globulin 3.4 1.9 - 3.7 g/dL (calc) [facility] Albumin/Globuli n Ratio 1.3 1.0 - 2.5 (calc) [facility] Bilirubin, Total 0.7 0.2 - 1.2 mg/dL [facility] Alkaline Phosphatase 64 36 - 130 U/L [facility] Aspartate Aminotrans (AST) 25 10 - 40 U/L [facility] Alanine Aminotrans (ALT) 39 9 - 46 U/L [facility] Blood specimen (specimen) Blood specimen / Unknown 2021 11:26 AM EDT 2021 11:27 AM EDT Narrative [facility] - 02/20/2021 3:31 PM EDT FASTING:NO FASTING: NO us Crystal [facility] BLOOD ORDERABLES Final Res ult [facility] [address], [place] [address] from Last 3 Months or Most Recently Relevant to Health Maintenance Insurance Care Teams Retirement Administrator Relationship Specialty Start Date End Date Dominick Barroso DO [address] [place] [address] PCP - General Internal Medicine 10/20/16 Jacqueline Paula, PAGeremiasC 05/19/16
--- OUTSIDE RECORDS SUMMARY | 2025-10-09 20:22 | XMS_ITS | Encounter Summary ---
Author Organization [facility] Address [address] [place] [address] Care Team Providers Care Chiller Operator Name Role Phone Jacqueline Paula PA-C Unavailable [phone] Dominick Barroso DO Primary Care Provider + [phone] Encounter Details Date Type Department Care Team (Late st Contact Info) Description 2021 Scanned Document [facility] Endocrinology [address] [address] Crystal Culver PA [address] [place] [id number] Social History Tobacco Use Types Packs/Day Years [...] have Coronavirus / COVID-19? No / Unsure 02/12/2021 10:48 AM EDT documented as of this encounter Plan of Treatment Not on file documented as of this encounter Visit Diagnoses Not on filedocumented in this encounter Care Teams Chiller Operator Relationship Specialty Start Date End Date Dominick Barroso DO [address] [facility] [place] [address] PCP - General Internal Medicine 10/20/16 Jacqueline Paula PA-C 05/19/16 documented as of this encounter
--- OUTSIDE RECORDS SUMMARY | 2025-10-09 20:22 | XMS_ITS | Clinical Summary ---
Author Organization [facility] Address [address] [place] [id number] Care Team Providers Care Radiology Therapist Name Role Phone Unavailable Primary Care Provider Unavailabl e Medical History Medical History Date Comments Diabetes mellitus (CMS/HCC V24, CMS/HCC V28) DX:Diabetes mellitus ([facility]) Social History Tobacco Use Types Packs/Day Years Used Date Smoking Tobacco: Every Day Cigarettes Alcohol Use Standard Drinks/Week Comments No 0 (1 standard drink = 0.6 oz pur e alcohol) Sex and Gender Information Value Date Recorded Sex Assigned at Not on file Legal Sex Male 12:25 PM EST Gender Identity Not on file Sexual Orientation Not on file Plan of Treatment Health Maintenance Due Date Last Done Comments DTaP,Tdap,and Td Vaccines (1 - Tdap) 02/12/2011 Hepatitis B Vaccines (1 of 3 - 19+ 3-dose series) 02/12/2011 HPV Vaccines (1 - 3-dose SCD M series) 02/12/2019 Depression Screening 10/25/2024 COVID-19 Vaccine (1 - 2024-2 6 season) 2025 Influenza Vaccine (#1) 2025 RSV Immunization Adult Patie nts (1 - 1-dose 75+ series) 02/12/2067 HIB Vaccines Aged Out No longer eligi ble based on patient's age to complete this topic Hepatitis A Vaccines Aged Out No long er eligible based on patient's age to complete this topic IPV Vaccines Aged Out No longer eligi ble based on patient's age to complete this topic MMR Vaccines Aged Out No longer eligi ble based on patient's age to complete this topic Meningococcal ACWY Vaccine Aged Out N o longer eligible based on patient's age to complete this topic Meningococcal B Vaccine Aged Out No l onger eligible based on patient's age to complete this topic Pneumococcal Vaccine: Pediat rics (0 to 5 Years) and At-Risk Patients (6 to 49 Years) Aged Out No longer eligible b ased on patient's age to complete this topic RSV Immunization Patients Un rhina 20 months Aged Out No longer eligible b ased on patient's age to complete this topic Varicella Vaccines Aged Out No longer eligible based on patient's age to complete this topic
--- OUTSIDE RECORDS SUMMARY | 2025-10-09 20:22 | XMS_ITS | Patient Health Record ---
Author Organization [facility] Address [address] [place] [address] Care Team Providers Care Customer Service Sales Consultant Name Role Phone BHARATH HALEANDRAELIBERTAD Primary Care Provider Unavailab Edilson Mac Unavailable [phone] Allergies No Known Allergies Medications Medication SIG (Take, Route, Frequency, Duration) Notes Start Date End Date Status FreeStyle Lite - for glucose monitori ng Finger Stick 03/28/2024 Active FreeStyle Cielo 3 Sensor - for continuous glucose monitoring subcutaneous every 2 weeks; Duration: 84 days 03/28/2024 Active Tresiba FlexTouch 100 UNIT/ML 30 units daily Subcutaneous once a day Active HumaLOG KwikPen 100 UNIT/ML insulin:carb ratio 1;10 plus scale 1:50 over 150 (about 5-10 units per meal), before meals Subcutaneous 3 Times a Day Activ e Losartan Potassium 100 MG 1 tablet Orally Once a day 11/28/2020 Active Metoprolol Succinate ER 25 MG TAKE 1 TABLET BY MOUTH EVERY DAY Active Social History Tobacco Use: Social History Observation Description Date Details (start date - stop date) Former Smoker NA - NA Sex Assigned At : Social History Observation Description Sex Assigned At Male Tobacco Use/Smoking Question Answer Notes Status: former smoker How long has it been since you last smoked? 1-5 years Alcohol Screen Question Answer Notes Did you have a drink contain ing alcohol in the past year? Yes How often did you have a dri nk containing alcohol in the past year? 2 to 4 times a month (2 points) How many drinks did you have on a typical day when you were drinking in the past year? 5 or 6 drinks (2 points) How often did you have 6 or more drinks on one occasion in the past year? Never (0 point) Points 4 Interpretation Positive Section Notes: Former Cigaette Smoker - quit 1.5 yr, smoked 1/2-3/4 ppd for over 10 yr before quitting Currently Smokes Marijuana Former Cigaette Smoker - quit 1.5 yr, smoked 1/2-3/4 ppd for over 10 yr before quitting Currently Smokes Marijuana Problems Problem Type SNOMED Code ICD Code Onset Dates Problem Status W/U Status Risk Notes Problem Benign essential hypertension (6736543) Benign essential hypertension (I10) Active confirmed Problem Essential hypertension (33797036) HTN (hypertension), benign (I10) Active confirmed Problem Hyperglycemia due to type 1 diabetes mellitus (885848291900325) Uncontrolled type 1 diabetes mellitus with hyperglycemia (E10.65) Active confirmed Plan Of Treatment Pending Test Test Name Order Date BASIC METABOLIC PANEL, FAST 03/28/2024 LIPID PROFILE 03/28/2024 MICROALB/CREAT RATIO,RAN URINE 4 HEMOGLOBIN A1C 03/28/2024 ALDOS/PLASMA RENIN ACT RATIO 03/28/2024 TSH SENSITIVE W/RFX TO FREE T4 4 Insurance Providers Payer Name Payer Address Payer Phone Subscriber Number Group Number Insured Name Patient Relationship to Insured Coverage Start Date Coverage End Date [facility] [address] [place] [phone] [id number] TOSHIA MCADAMS Self - patient is the insured [employer] [address] [facility] [place] [id number] Drug Srceening TOSHIA MCADAMS Self - patient is the insured Medical (General) History Medical History History ICD Code hypertension diabetes Anxiety Testicular Pain Surgical History Surgery Date(Month/Year) Hospitalization History Reason Date(Month/Year) ER- Chest pain 10/2020
--- OUTSIDE RECORDS SUMMARY | 2025-10-09 20:22 | XMS_ITS | Patient Health Record ---
Author Organization [facility], Address [address] [place] [address] Allergies No Known Allergies Reason For Referral No Information Medications Medication SIG (Take, Route, Frequency, Duration) Notes Start Date End Date Status Tresiba Active HumaLOG Active Social History Sex Assigned At : Social History Observation Description Sex Assigned At Male Section Notes: ADMITS TO SMOKING OR AND NO DRINKING Problems No Known Problems Plan Of Treatment No Information Insurance Providers Payer Name Payer Address Payer Phone Subscriber Number Group Number Insured Name Patient Relationship to Insured Coverage Start Date Coverage End Date [employer] [place] [address] [place] [phone] [id number] TOSHIA MCADAMS Self - patient is the insured Medical (General) History Medical History History ICD Code Diabetes high blood pressure
--- OUTSIDE RECORDS SUMMARY | 2025-10-09 20:22 | XMS_ITS | Encounter Summary ---
Author Organization [facility] Address [address] [place] [address] Care Team Providers Care Database Technician Name Role Phone Jacqueline Paula PA-C Unavailable Dominick Barroso DO Primary Care Provider Encounter Details Date Type Department Care Team (Late st Contact Info) Description 04/13/2024 Scanned Document [facility] Endocrinology [address] [address] Crystal Culver PA [address] [place] [id number] Social History Tobacco Use Types Packs/Day Years [...] on filedocumented in this encounter Care Teams Database Technician Relationship Specialty Start Date End Date Dominick Barroso DO [address] [place] [address] PCP - General Internal Medicine 10/20/16 Jacqueline Paula PA-C 05/19/16 documented as of this encounter
[2025-10-09 22:24] VITALS: BP 138/82; PULSE 80; RESP 15; TEMP 36.6; O2SAT 99
== END 2025-10-09 22:25 | disposition home or self-care (01) ==
PROVIDERS: Emergency Provider Emergency Medicine
DX: K29.20 Alcoholic gastritis without bleeding (principal)
CPT/HCPCS: 36415; 80048; 80076; 80307; 82271; 82272; 82947; 83690; 83735; 85025; 96361; 96374; 96375; 99284; J0737; J2405; J2470